=== PATIENT | female | born 1970 | race Caucasian/White ===

== ENCOUNTER 2016-10-23 10:52 | Day surgery (SDC) | payer BC ==
[~2016-10-23] VITALS: Ht 153.7 cm; Wt 126.9 kg
[2016-10-23] MEDS ORDERED: LOPRESSOR 550 MG/TAB PO (11:36)
[2016-10-23] MEDS ORDERED: SYNTHROID0.2 MG/TAB PO (11:37)
[2016-10-23 12:13] VITALS: BP 188/138; PULSE 64; TEMP 98
[2016-10-23 13:00] VITALS: BP 138/110; PULSE 85; TEMP 97.9
[2016-10-23 13:15] VITALS: BP 143/105; PULSE 81
[2016-10-23 13:35] VITALS: BP 143/103; PULSE 82
[2016-10-23 14:26] VITALS: BP 115/94; PULSE 82
== END 2016-10-23 13:45 | disposition home or self-care (01) ==
LOC: SDCO 10:52
DX: R19.5 Other fecal abnormalities (principal); R10.9 Unspecified abdominal pain; K57.30 Diverticulosis of large intestine without perforation or abscess without bleeding; K64.1 Second degree hemorrhoids; Z86.19 Personal history of other infectious and parasitic diseases
CPT/HCPCS: J2250; J3010; J7030